=== PATIENT | female | born 1965 | race African-American/Black ===

== ENCOUNTER 2018-08-02 15:05 | Emergency (ER) | payer OTHER ==
[2018-08-02] MEDS ORDERED: Ondansetron HCl/PF 4 MG/2 ML Vial ONE (16:10)
[2018-08-02 16:17] LABS: Hemoglobin 15.9 g/dL (12.0-16.0); Mean Corpuscular HGB CONC 33.5 g/dL (32.0-36.0); Mean Corpuscular Volume 95.5 fL (78.0-98.0); Mean Platelet Volume 10.5 fL (7.4-10.4); Platelet Count 161 thou/uL (130-400); RBC Distribution Width 11.5 % (11.5-14.5); Red Blood Cell (RBC) Count 4.95 mill/uL (4.20-5.40); White Blood Cell (WBC) Count 4.9 thou/uL (4.8-10.8)
--- NOTE | 2018-08-02 16:23 | RAD ---
PORTABLE CHEST: Date: 08/02/18 PROVIDED CLINICAL HISTORY: Chest pain. FINDINGS: Cardiac and mediastinal silhouette is within normal limits. Lungs appear clear. No pleural fluid or p neumothorax apparent. IMPRESSION: No evidence for an acute cardiopulmonary process. POS: [facility]
[2018-08-02 16:29] LABS: Bilirubin Negative (Negative); Blood, Urine Negative (Negative); Clarity CLEAR (Clear); Glucose, Urine (Dipstick) >=1000 mg/dL (Negative); Leukocyte Negative (Negative); Nitrite Negative (Negative); Protein, Urine (Dipstick) Negative (Neg-Trace); Specific Gravity, Urine 1.033 (1.002-1.036); Urobilinogen 0.2 mg/dL (0.2-1.0); pH, Urine 5.5 (5.0-9.0)
[2018-08-02 16:31] LABS: Pregnancy Test - Urine (BHCG) Negative (Negative); Pregu Control Background? CLEAR/WHITE (CLR/WHITE); Pregu Control Bar Appear? YES (CONTROL BAR); Specific Gravity 1.033 (1.002-1.036)
[2018-08-02 16:32] LABS: CKMB 1.4 ng/mL (0-6.6); Troponin I Less than 0.010 ng/mL (< 0.028)
[2018-08-02 16:35] LABS: ALT (SGPT) 107 U/L (8-55); AST (SGOT) 87 U/L (5-34); Albumin 3.6 g/dL (3.5-5.0); Alkaline Phosphatase 247 U/L (40-150); Anion Gap 14 mmol/L (10-20); BUN (Urea Nitrogen) 22 mg/dL (9.8-20.1); Bilirubin, Total 0.8 mg/dL (0.2-1.2); Calc. Creatinine Clearance 0 mL/min (70-130); Calcium 9.5 mg/dL (7.8-10.44); Carbon Dioxide 30 mmol/L (22-29); Chloride 88 mmol/L (98-107); Eosinophils 1 % (0-10); Estimated GFR-MDRD 44; Globulin 5.2 g/dL (2.4-3.5); Lipase 49 U/L (8-78); Lymphocytes 58 % (21-51); MDiff Complete? YES; Monocytes 10 % (0-10); Neutrophil 26 % (42-75); PLT Morphology Comment Appears Adequate; Potassium 4.4 mmol/L (3.5-5.1); Protein, Total 8.8 g/dL (6.0-8.3); RBC Morphology Normal; Reactive Lymphocytes 5 % (0-10); Sodium 128 mmol/L (136-145)
[2018-08-02 16:43] LABS: Glucose 756 mg/dL (70-105)
--- NOTE | 2018-08-02 17:03 | CT ---
CT ABDOMEN AND PELVIS WITH IV CONTRAST: Date: 08/02/18 HISTORY: Abdominal pain, onset of symptoms 4 days ago. Nausea and vomiting. COMPARISON: None available. FINDINGS: There is an approximately 5.0 mm noncalcified pulmonary nodule at the right lung base. Lung bases are otherwise clear. Mild degenerative changes are seen in the lumbar spine at the L2-3 level. Mild vascular calcifications seen in the abdominal aorta. Liver is enlarged in craniocaudal dimension measuring 18.2 cm. Liver otherwise has a normal CT appear ance. The spleen, pancreas, bilateral adrenal glands, kidneys, and urinary bladder demonstrate a normal CT appearance. There are increased density/small enhancing masses within the uterus, largest measuring 1.5 cm, and m ay be related to small uterine fibroids. The appendix is normal in caliber with gas seen in the appendix. There is a moderate amount of retained fecal material seen throughout the colon suggesting constipati on. Loops of small bowel are normal in caliber. No free fluid, fluid collection, or lymphadenopathy is seen in the abdomen or pelvis. IMPRESSION: 1. No acute findings are seen in the abdomen or pelvis. 2. Enlargement of the liver in craniocaudal dimension measuring 18.2 cm. 3. Nonspecific 5.0 mm pulmonary nodule right lung base. 4. Small enhancing masses within the uterus which are difficult to characterize, but may be related to small uterine fibroids. 5. No CT evidence of appendicitis. 6. Constipation. POS: [facility] [place]
[2018-08-02 17:30] LABS: Analyzer IN Cardio ER; Base Excess (BEa) 6.6 mEq/L (-2.0 to +3.0); CO2 Tension 48.2 mmHg (35.0-45.0); Calcium, Ionized 1.12 mmol/L (1.12-1.30); Carboxyhemoglobin (COHb) 4.8 gm% (0.0-3.0); Hemoglobin (Hb) 15.1 g/dL (12.0-16.0); O2 Tension (PaO2) 72.1 mmHg (80.0-100.0); Potassium - ABG Lab 3.97 mmol/L (3.70-5.30); pH, Arterial 7.44 (7.35-7.45)
[2018-08-02 17:33] LABS: Puncture Site LB
[2018-08-02 17:44] LABS: Bicarbonate (HCO3v) 34.7 mmol/L (1.0-85.0); CO2 Tension (PvCO2) 54.8 mmHg (41.0-51.0); Calcium, Ionized 1.03 mmol/L (1.12-1.32); Hemoglobin - Calc 15.5 g/dL (12.0-18.0); O2 Tension (PvO2) 29.6 mmHg (35.0-45.0); Potassium 4.6 mmol/L (3.4-4.7); T. Carbon Dioxide 36.4 mmol/L (1.0-85.0); vO2 Saturation-calc 55.3 % (94-98)
[2018-08-02 17:59] LABS: Lactic Acid 1.5 mmol/L (0.5-2.2)
[2018-08-02] MEDS ORDERED: Insulin Regular 300 UNITS/3 ML VIAL ONE (20:11)
== END 2018-08-02 20:31 | disposition short-term general hospital (02) ==
LOC: ERS 15:05
DX: E11.65 Type 2 diabetes mellitus with hyperglycemia (principal); E78.5 Hyperlipidemia, unspecified; F31.9 Bipolar disorder, unspecified; F41.9 Anxiety disorder, unspecified; I10 Essential (primary) hypertension; F17.210 Nicotine dependence, cigarettes, uncomplicated; Z79.4 Long term (current) use of insulin; Z91.14 Patient's other noncompliance with medication regimen; Z79.899 Other long term (current) drug therapy
CPT/HCPCS: 36415; 36416; 71045; 74177; 80053; 81003; 81025; 82010; 82330; 82553; 82803; 82805; 83605; 83690; 83735; 83930; 83935; 84484; 85025; 86140; 87040; 93005; 96361; 96372; 96374; 96375; J1815; J2405